=== PATIENT | female | born 1945 | race Caucasian/White ===

== ENCOUNTER 2023-07-06 21:08 | Emergency (ER) | payer OTHER ==
--- OUTSIDE RECORDS SUMMARY | 2023-07-06 21:11 | XMS REPORT | Continuity of Care Document ---
Author Name Unknown Address [address] [facility] [address] [place] [address] [facility] thconnect Address [address] [facility] [address] [place] [address] Care Team Providers Care Jewelry Maker Name Role Phone MYRANDA DEWITT Attending Clinician Unava ilable Payers Payer Name Policy Type Policy Number Effective Date Expirati on Date Source MEDICARE-PART B 5 [id number] 2020 00:00:00 [facility] INS/IND 4 [id number] 2020 00:00:00 Encounters Start Date/Time End Date/Time Encounter Type Admission Type Attending Clinicians Care Facility Care Department Encounter ID Source 2020-11-10 08:30:00 2020-11-10 08:30:00 Outpatient MYRANDA DEWITT [id number] Ashlee Benítez 2020-10-20 09:45:00 2020-10-20 09:45:00 Outpatient MYRANDA DEWITT [id number] Ashlee Benítez
[2023-07-06] MEDS ORDERED: TENECTEPLASE 50 MG/10 ML VIAL IV ONE (21:15)
[2023-07-06 21:43] LABS: Absolute Basophils 0.1 K/uL (0-0.5); Absolute Lymphocytes (CBC) 1.1 K/uL (0.7-4.9); Absolute Monocytes 0.5 K/uL (0.1-1.3); Absolute Neutrophil 11.8 K/uL (1.8-8.0); Basophils % 0.8 % (0-1.3); Eosinophils % 0.4 % (0-4.4); Hematocrit 39.8 % (36.0-45.0); Hemoglobin 13.4 g/dL (12.0-15.0); Lymphocytes % 7.8 % (15.3-44.8); MCH 28.6 pg (27.0-35.0); MCHC 33.8 g/dL (32.0-36.0); MCV 84.8 fL (80-100); MPV 8.2 fL (7.6-11.3); Monocytes % 3.7 % (3.3-12.3); Neutrophils % 87.3 % (41.7-73.7); Platelets 259 thou/uL (152-406); RBC Red Blood Cell Count 4.69 M/uL (3.86-4.86)
--- NOTE | 2023-07-06 21:47 | RAD REPORT ---
EXAM DESCRIPTION: CT - Ct Stroke Brain Wo Cont - 07/06/2023 9:19 pm CLINICAL HISTORY: STROKE ALERT Headache, drowsiness, CVA symptomology COMPARISON: <Comparisons> TECHNIQUE: All CT scans are performed using dose optimization technique as appropriate and may inclu de automated exposure control or mA/KV adjustment according to patient size. FINDINGS: No intracranial hemorrhage, hydrocephalus or extra-axial fluid collection.Moderate brain a trophy.No areas of brain edema or evidence of midline shift. The paranasal sinuses and mastoids are clear. The calvarium is intact. IMPRESSION: No acute intracranial abnormality. The findings were discussed with Denise in the ER on 07/06/2023 at 9:12 p.m. by telephone.
[2023-07-06 21:57] LABS: PT Prothrombin Time 11.3 SECONDS (9.5-12.5); PTT, Activated Partial Thromb 26.1 SECONDS (24.3-36.9); Protime INR 1.03
[2023-07-06 22:01] LABS: Albumin 3.6 g/dL (3.4-5.0); Albumin/Globulin Ratio 1.1 (1.1-1.8); Anion Gap 9.6 mEq/L (5.0-15.0); Bilirubin Direct 0.1 mg/dL (0-0.2); Bilirubin Indirect, Calculated 0.3 mg/dL (0.2-0.8); Bilirubin Total 0.4 mg/dL (0.2-1.0); Globulin 3.2 g/dL (2.3-3.5); Magnesium 1.9 mg/dL (1.6-2.4); Potassium 3.6 mEq/L (3.5-5.1); Protein, Total 6.8 g/dL (6.4-8.2); Troponin High Sensitivity 39.3 pg/mL (<58.9)
--- NOTE | 2023-07-06 22:03 | RAD REPORT ---
EXAM DESCRIPTION: RAD - Chest Single View - 07/06/2023 9:56 pm CLINICAL HISTORY: cva Chest pain. COMPARISON: <Comparisons> FINDINGS: Portable technique limits examination quality. The lungs are grossly clear. The heart is mildly enlarged in size. No displaced fractures. IMPRESSION: No acute intrathoracic process suspected.
[2023-07-06] MEDS ORDERED: PANTOPRAZOLE 40 MG INJ ONE (22:14)
--- NOTE | 2023-07-06 22:25 | RAD REPORT ---
EXAM DESCRIPTION: CT - Head angio - 07/06/2023 10:15 pm CLINICAL HISTORY: cva Headache, drowsiness, CVA symptomology COMPARISON: <Comparisons> TECHNIQUE: CT angiography of the head was performed with MIPs. All CT scans are performed using dose optimization technique as appropriate and may include automated exposure control or mA/KV adjustment according to patient size. FINDINGS: There is abrupt caliber change noted at the left M1 segment compatible with occlusion. No evidence of aneurysm is detected. No flow-limiting stenosis or vascular malformation identified. Antegrade flow is seen in the vertebral arteries. The visualized dural venous sinuses are patent. IMPRESSION: Left M1 segment occlusion is noted.
--- NOTE | 2023-07-06 22:27 | RAD REPORT ---
EXAM DESCRIPTION: CT - Neck Angio - 07/06/2023 10:15 pm CLINICAL HISTORY: cva Headache, drowsiness, CVA symptomology COMPARISON: Ct Stroke Brain Wo Cont dated 07/06/2023 TECHNIQUE: CT angiography of the neck vessels was performed with MIPs. All CT scans are performed using dose optimization technique as appropriate and may include automated exposure control or mA/KV adjustment according to patient size. FINDINGS: A left aortic arch is identified with normal three vessel configuration of the great vesse ls. No significant flow abnormality is seen of the common carotid bilaterally. Mild plaque with mild narrowing seen right carotid bulb. Based on NASCET criteria, stenosis is less t dowd 50%. No significant left-sided stenosis seen. Normal flow is seen within both vertebral arteries. IMPRESSION: No significant flow abnormality of the neck vessels is identified. Mild plaque is present right carotid bulb. NASCET criteria used. Mild 0-49% stenosis Moderate 50-69% stenosis Severe 70-99% stenosis
--- NOTE | 2023-07-06 22:39 | EDPHYS ---
Physician Documentation [facility] Name: Kim Tineo Age: 78 yrs Sex: Female : 1945 Arrival Date: 07/06/2023 Time: 21:08 Bed 6 Private MD: ED Physician Liam Mcmullen HPI: 07/05 22:40 This 78 yrs old Female presents to ER via EMS with complaints of weakness. rt 22:40 Patient presents to the ED with signs and symptoms concerning for acute CVA. Patient rt states that she was last known normal at about 7 PM. Family found patient down on the ground, denies head trauma. Reports speech difficulty, right-sided facial droop, inability to move right arm, right leg. Denies anticoagulant use. Denies recent bleeding, CVA, surgery, or any prior history of head bleeds. Symptoms are severe in severity, no other aggravating alleviating factors.. Historical: - Allergies: 21:21 No Known Allergies; rv - PMHx: 21:21 Hypertensive disorder; rv - Immunization history:: Adult Immunizations up to date. - Social history:: Smoking status: unknown. ROS: 23:18 Constitutional: Negative for fever, chills, and weight loss, Cardiovascular: Negative rt for chest pain, palpitations, and edema, Respiratory: Negative for shortness of breath, cough, wheezing, and pleuritic chest pain, Abdomen/GI: Negative for abdominal pain, nausea, vomiting, diarrhea, and constipation, MS/Extremity: Negative for injury and deformity, Skin: Negative for injury, rash, and discoloration, Psych: Negative for depression, anxiety, suicide ideation, homicidal ideation, and hallucinations, 23:18 Neuro: Positive for speech changes, weakness, Exam: 22:40 ECG was reviewed by the Attending Physician. rt 23:18 Constitutional: This is a well developed, well nourished patient who is awake, alert, rt and in no acute distress. Head/Face: Normocephalic, atraumatic. Chest/axilla: Normal chest wall appearance and motion. Nontender with no deformity. No lesions are appreciated. Cardiovascular: Regular rate and rhythm with a normal S1 and S2. No gallops, murmurs, or rubs. Normal PMI, no JVD. No pulse deficits. Respiratory: Lungs have equal breath sounds bilaterally, clear to auscultation and percussion. No rales, rhonchi or wheezes noted. No increased work of breathing, no retractions or nasal flaring. Abdomen/GI: Soft, non-tender, with normal bowel sounds. No distension or tympany. No guarding or rebound. No evidence of tenderness throughout. Skin: Warm, dry with normal turgor. Normal color with no rashes, no lesions, and no evidence of cellulitis. MS/ Extremity: Pulses equal, no cyanosis. Neurovascular intact. Full, normal range of motion. 23:18 Eyes: Extraocular muscles intact, no visual field deficit. 23:18 Neuro: Dysarthria noted, right-sided facial droop, sensory deficits on the right side. Hemiparesis noted on the right arm and right leg, strength otherwise intact., Vital Signs: 21:19 Weight 105 kg; rv 21:36 BP 164 / 65; Pulse 60; Resp 16; Temp 98; Pulse Ox 96% on R/A; rv 22:00 BP 170 / 62; Pulse 64; Resp 19; Pulse Ox 96% on R/A; rv 22:30 BP 178 / 68; Pulse 65; Resp 15; Pulse Ox 96% on R/A; rv 23:00 BP 172 / 53; Pulse 61; Resp 16; Pulse Ox 97% on R/A; rv 23:30 BP 172 / 61; Pulse 58; Resp 16; Temp 98; Pulse Ox 97% on R/A; rv NIH Stroke Scale Scores: 21:23 NIHSS Score: 13 rt 21:29 NIHSS Score: 13 rv 21:45 NIHSS Score: 13 rv 22:00 NIHSS Score: 13 rv 22:15 NIHSS Score: 13 rv 22:30 NIHSS Score: 13 rv 22:45 NIHSS Score: 13 rv 23:00 NIHSS Score: 13 rv 23:30 NIHSS Score: 13 rv [place] Coma Score: 22:30 Eye Response: spontaneous(4). Motor Response: obeys commands(6). Verbal Response: rv oriented(5). Total: 15. 23:30 Eye Response: spontaneous(4). Motor Response: obeys commands(6). Verbal Response: rv oriented(5). Total: 15. MDM: 21:15 Patient medically screened. rt 23:18 Data reviewed: vital signs, nurses notes, lab test result(s), EKG, radiologic studies. rt Consideration of Admission/Observation Escalation of care including admission/observation considered. Patient course transfer for higher level of care. Independent interpretation of the following test(s) in the Emergency Department CT Scan: My interpretation is No intracranial hemorrhage interpretation of the CT scan images. Discussion of test interpretation with radiology: I had a discussion with radiology regarding a test interpretation. No intracranial hemorrhage. Historians other than the Patient: Daughter/Son: . Care significantly affected by the following chronic conditions: Hypertension. Counseling: I had a detailed discussion with the patient and/or guardian regarding the historical points, exam findings, and any diagnostic results supporting the discharge/admit diagnosis, lab results, radiology results, the need to transfer to another facility. Response to treatment: There is no appreciated change of the patient's symptoms at this time. ED course: Patient with 2 episodes of hematemesis after TNKase administration, vital signs are stable, type and screen sent, Protonix given, will continue to monitor.. 07/05 21:16 Order name: Basic Metabolic Panel; Complete Time: 22:03 rt 07/05 21:16 Order name: CBC with Diff; Complete Time: 22:03 rt 07/05 21:16 Order name: Hepatic Function; Complete Time: 22:03 rt 07/05 21:16 Order name: High Sensitivity Troponin; Complete Time: 22:03 rt 07/05 21:16 Order name: Magnesium; Complete Time: 22:03 rt 07/05 21:16 Order name: Protime (+inr); Complete Time: 22:03 rt 07/05 21:16 Order name: Ptt, Activated; Complete Time: 22: rt 07/05 22:03 Order name: Type And Screen; Complete Time: 23:28 rt 07/05 23:23 Order name: ABO/RH no charge; Complete Time: 23:28 EDMS 07/05 21:16 Order name: CT Head Angio; Complete Time: 22:30 rt 07/05 21:16 Order name: CT Neck Angio; Complete Time: :30 rt 07/05 21:16 Order name: CT Stroke Brain w/o Contrast; Complete Time: 22:03 rt 07/05 21:16 Order name: Stroke CXR 1 View; Complete Time: : rt 07/05 21:16 Order name: Accucheck; Complete Time: 21:36 rt 07/05 21:16 Order name: Cardiac monitoring; Complete Time: 21:36 rt 07/05 21:16 Order name: EKG - Nurse/Tech; Complete Time: :58 rt 07/05 21:16 Order name: IV Saline Lock; Complete Time: 21:36 rt 07/05 21:16 Order name: Labs collected and sent; Complete Time: 21:36 rt 07/05 21:16 Order name: NPO; Complete Time: :36 rt 07/05 21:16 Order name: O2 Per Protocol; Complete Time: 21:36 rt 07/05 21:16 Order name: O2 Sat Monitoring; Complete Time: 21:36 rt EC:40 Rate is 58 beats/min. Rhythm is regular, Sinus bradycardia with No ectopy. Left axis rt deviation noted. MS interval is normal. QRS interval is normal. QT interval is normal. No Q waves. No ST changes noted. Interpreted by me. Administered Medications: 21:30 Drug: TNK FOR STROKE - Tenecteplase IV 0.25 mg/kg IV at per protocol once; MAX pf1 DOSE 25 mg, IVP over 5 seconds {Co-Signature: rv (Dion Rankin RN).} Route: IV; Rate: per protocol; Site: left forearm; 22:54 Follow up: Response: Adverse reaction, Physician notified; IV Status: Completed infusionrv 21:58 Drug: Ondansetron IVP 4 mg IVP once; over 2 minutes Route: IVP; Site: left forearm; rv 22:54 Follow up: Response: No adverse reaction; Marked relief of symptoms rv 22:37 Drug: Pantoprazole IVP 80 mg IVP once Route: IVP; Site: left forearm; rv 22:54 Follow up: Response: No adverse reaction rv 23:00 Drug: Ondansetron IVP 4 mg IVP once; over 2 minutes Route: IVP; Site: left forearm; cm10 07/06 00:06 Follow up: Response: No adverse reaction; Marked relief of symptoms rv Disposition Summary: 07/06/23 22:38 Transfer Ordered Notes: Transfer Location: [facility] rt Reason: Higher level of care rt Condition: Critical rt Problem: new rt Symptoms: are unchanged rt Accepting Physician: (07/07/23 00:09) rv Diagnosis - Acute CVA rt - Left M1 occlusion rt - Hematemesis rt Forms: - Medication Reconciliation Form rt - SBAR form rt Critical care time excluding procedures: 07/05 23:20 Critical care time: Bedside Care: 30 minutes, Consultation: 10 minutes. Total time: 40 rt minutes NIH Stroke Scale - NIH Stroke Score Date: 07/06/2023 Time: 21: Total Score = 13 10. Dysarthria (speech clarity - read or repeat words) - 2(Severe) 11. Extinction and Inattention (visual/tactile/auditory/spatial/personal) - 0(No abnormality) 1a. Level of Consciousness (LOC) - 0(Alert) 1b. Level of Consciousness (LOC) (Month \T\ Age) - 0(Both) 1c. LOC Commands (Open \T\ Closes Eyes/Trim Attacher) - 0(Both) 2. Best Gaze (Lateral Gaze Paresis) - 0(Normal) 3. Visual Field Loss - 0(No visual loss) 4. Facial Palsy - 2(Partial paralysis) 5a. Left Arm: Motor (10-second hold) - 0(No drift) 5b. Right Arm: Motor (10-second hold) - 4(No movement) 6a. Left Leg: Motor (5-second hold - always test supine) - 0(No drift) 6b. Right Leg: Motor (5-second hold - always test supine) - 4(No movement) 7. Limb Ataxia (finger/nose \T\ heel/abarca - test with eyes open) - 0(Absent) 8. Sensory Loss (pinprick arms/legs/face) - 1(Mild to moderate loss) 9. Best Language: Aphasia (description/naming/reading) - 0(No aphasia) Initials: rt NIH Stroke Scale - NIH Stroke Score Date: 07/06/2023 Time: Total Score = 13 10. Dysarthria (speech clarity - read or repeat words) - 1(Mild to Moderate) 11. Extinction and Inattention (visual/tactile/auditory/spatial/personal) - 0(No abnormality) 1a. Level of Consciousness (LOC) - 0(Alert) 1b. Level of Consciousness (LOC) (Month \T\ Age) - 0(Both) 1c. LOC Commands (Open \T\ Closes Eyes/Trim Attacher) - 0(Both) 2. Best Gaze (Lateral Gaze Paresis) - 0(Normal) 3. Visual Field Loss - 0(No visual loss) 4. Facial Palsy - 3(Complete paralysis) 5a. Left Arm: Motor (10-second hold) - 0(No drift) 5b. Right Arm: Motor (10-second hold) - 4(No movement) 6a. Left Leg: Motor (5-second hold - always test supine) - 0(No drift) 6b. Right Leg: Motor (5-second hold - always test supine) - 4(No movement) 7. Limb Ataxia (finger/nose \T\ heel/abarca - test with eyes open) - 0(Absent) 8. Sensory Loss (pinprick arms/legs/face) - 1(Mild to moderate loss) 9. Best Language: Aphasia (description/naming/reading) - 0(No aphasia) Initials: NIH Stroke Scale - NIH Stroke Score Date: 07/06/2023 Time: 21:45 Total Score = 13 10. Dysarthria (speech clarity - read or repeat words) - 1(Mild to Moderate) 11. Extinction and Inattention (visual/tactile/auditory/spatial/personal) - 0(No abnormality) 1a. Level of Consciousness (LOC) - 0(Alert) 1b. Level of Consciousness (LOC) (Month \T\ Age) - 0(Both) 1c. LOC Commands (Open \T\ Closes Eyes/Trim Attacher) - 0(Both) 2. Best Gaze (Lateral Gaze Paresis) - 0(Normal) 3. Visual Field Loss - 0(No visual loss) 4. Facial Palsy - 3(Complete paralysis) 5a. Left Arm: Motor (10-second hold) - 0(No drift) 5b. Right Arm: Motor (10-second hold) - 4(No movement) 6a. Left Leg: Motor (5-second hold - always test supine) - 0(No drift) 6b. Right Leg: Motor (5-second hold - always test supine) - 4(No movement) 7. Limb Ataxia (finger/nose \T\ heel/abarca - test with eyes open) - 0(Absent) 8. Sensory Loss (pinprick arms/legs/face) - 1(Mild to moderate loss) 9. Best Language: Aphasia (description/naming/reading) - 0(No aphasia) Initials: NIH Stroke Scale - NIH Stroke Score Date: 07/06/2023 Time: 22:00 Total Score = 13 10. Dysarthria (speech clarity - read or repeat words) - 1(Mild to Moderate) 11. Extinction and Inattention (visual/tactile/auditory/spatial/personal) - 0(No abnormality) 1a. Level of Consciousness (LOC) - 0(Alert) 1b. Level of Consciousness (LOC) (Month \T\ Age) - 0(Both) 1c. LOC Commands (Open \T\ Closes Eyes/Trim Attacher) - 0(Both) 2. Best Gaze (Lateral Gaze Paresis) - 0(Normal) 3. Visual Field Loss - 0(No visual loss) 4. Facial Palsy - 3(Complete paralysis) 5a. Left Arm: Motor (10-second hold) - 0(No drift) 5b. Right Arm: Motor (10-second hold) - 4(No movement) 6a. Left Leg: Motor (5-second hold - always test supine) - 0(No drift) 6b. Right Leg: Motor (5-second hold - always test supine) - 4(No movement) 7. Limb Ataxia (finger/nose \T\ heel/abarca - test with eyes open) - 0(Absent) 8. Sensory Loss (pinprick arms/legs/face) - 1(Mild to moderate loss) 9. Best Language: Aphasia (description/naming/reading) - 0(No aphasia) Initials: NIH Stroke Scale - NIH Stroke Score Date: 07/06/2023 Time: 22:15 Total Score = 13 10. Dysarthria (speech clarity - read or repeat words) - 1(Mild to Moderate) 11. Extinction and Inattention (visual/tactile/auditory/spatial/personal) - 0(No abnormality) 1a. Level of Consciousness (LOC) - 0(Alert) 1b. Level of Consciousness (LOC) (Month \T\ Age) - 0(Both) 1c. LOC Commands (Open \T\ Closes Eyes/Trim Attacher) - 0(Both) 2. Best Gaze (Lateral Gaze Paresis) - 0(Normal) 3. Visual Field Loss - 0(No visual loss) 4. Facial Palsy - 3(Complete paralysis) 5a. Left Arm: Motor (10-second hold) - 0(No drift) 5b. Right Arm: Motor (10-second hold) - 4(No movement) 6a. Left Leg: Motor (5-second hold - always test supine) - 0(No drift) 6b. Right Leg: Motor (5-second hold - always test supine) - 4(No movement) 7. Limb Ataxia (finger/nose \T\ heel/abarca - test with eyes open) - 0(Absent) 8. Sensory Loss (pinprick arms/legs/face) - 1(Mild to moderate loss) 9. Best Language: Aphasia (description/naming/reading) - 0(No aphasia) Initials: rv NIH Stroke Scale - NIH Stroke Score Date: 07/06/2023 Time: 22:30 Total Score = 13 10. Dysarthria (speech clarity - read or repeat words) - 1(Mild to Moderate) 11. Extinction and Inattention (visual/tactile/auditory/spatial/personal) - 0(No abnormality) 1a. Level of Consciousness (LOC) - 0(Alert) 1b. Level of Consciousness (LOC) (Month \T\ Age) - 0(Both) 1c. LOC Commands (Open \T\ Closes Eyes/Trim Attacher) - 0(Both) 2. Best Gaze (Lateral Gaze Paresis) - 0(Normal) 3. Visual Field Loss - 0(No visual loss) 4. Facial Palsy - 3(Complete paralysis) 5a. Left Arm: Motor (10-second hold) - 0(No drift) 5b. Right Arm: Motor (10-second hold) - 4(No movement) 6a. Left Leg: Motor (5-second hold - always test supine) - 0(No drift) 6b. Right Leg: Motor (5-second hold - always test supine) - 4(No movement) 7. Limb Ataxia (finger/nose \T\ heel/abarca - test with eyes open) - 0(Absent) 8. Sensory Loss (pinprick arms/legs/face) - 1(Mild to moderate loss) 9. Best Language: Aphasia (description/naming/reading) - 0(No aphasia) Initials: rv NIH Stroke Scale - NIH Stroke Score Date: 07/06/2023 Time: 22:45 Total Score = 13 10. Dysarthria (speech clarity - read or repeat words) - 1(Mild to Moderate) 11. Extinction and Inattention (visual/tactile/auditory/spatial/personal) - 0(No abnormality) 1a. Level of Consciousness (LOC) - 0(Alert) 1b. Level of Consciousness (LOC) (Month \T\ Age) - 0(Both) 1c. LOC Commands (Open \T\ Closes Eyes/Trim Attacher) - 0(Both) 2. Best Gaze (Lateral Gaze Paresis) - 0(Normal) 3. Visual Field Loss - 0(No visual loss) 4. Facial Palsy - 3(Complete paralysis) 5a. Left Arm: Motor (10-second hold) - 0(No drift) 5b. Right Arm: Motor (10-second hold) - 4(No movement) 6a. Left Leg: Motor (5-second hold - always test supine) - 0(No drift) 6b. Right Leg: Motor (5-second hold - always test supine) - 4(No movement) 7. Limb Ataxia (finger/nose \T\ heel/abarca - test with eyes open) - 0(Absent) 8. Sensory Loss (pinprick arms/legs/face) - 1(Mild to moderate loss) 9. Best Language: Aphasia (description/naming/reading) - 0(No aphasia) Initials: rv NIH Stroke Scale - NIH Stroke Score Date: 07/06/2023 Time: 23:00 Total Score = 13 10. Dysarthria (speech clarity - read or repeat words) - 1(Mild to Moderate) 11. Extinction and Inattention (visual/tactile/auditory/spatial/personal) - 0(No abnormality) 1a. Level of Consciousness (LOC) - 0(Alert) 1b. Level of Consciousness (LOC) (Month \T\ Age) - 0(Both) 1c. LOC Commands (Open \T\ Closes Eyes/Trim Attacher) - 0(Both) 2. Best Gaze (Lateral Gaze Paresis) - 0(Normal) 3. Visual Field Loss - 0(No visual loss) 4. Facial Palsy - 3(Complete paralysis) 5a. Left Arm: Motor (10-second hold) - 0(No drift) 5b. Right Arm: Motor (10-second hold) - 4(No movement) 6a. Left Leg: Motor (5-second hold - always test supine) - 0(No drift) 6b. Right Leg: Motor (5-second hold - always test supine) - 4(No movement) 7. Limb Ataxia (finger/nose \T\ heel/abarca - test with eyes open) - 0(Absent) 8. Sensory Loss (pinprick arms/legs/face) - 1(Mild to moderate loss) 9. Best Language: Aphasia (description/naming/reading) - 0(No aphasia) Initials: rv NIH Stroke Scale - NIH Stroke Score Date: 07/06/2023 Time: 23:30 Total Score = 13 10. Dysarthria (speech clarity - read or repeat words) - 1(Mild to Moderate) 11. Extinction and Inattention (visual/tactile/auditory/spatial/personal) - 0(No abnormality) 1a. Level of Consciousness (LOC) - 0(Alert) 1b. Level of Consciousness (LOC) (Month \T\ Age) - 0(Both) 1c. LOC Commands (Open \T\ Closes Eyes/Trim Attacher) - 0(Both) 2. Best Gaze (Lateral Gaze Paresis) - 0(Normal) 3. Visual Field Loss - 0(No visual loss) 4. Facial Palsy - 3(Complete paralysis) 5a. Left Arm: Motor (10-second hold) - 0(No drift) 5b. Right Arm: Motor (10-second hold) - 4(No movement) 6a. Left Leg: Motor (5-second hold - always test supine) - 0(No drift) 6b. Right Leg: Motor (5-second hold - always test supine) - 4(No movement) 7. Limb Ataxia (finger/nose \T\ heel/abarca - test with eyes open) - 0(Absent) 8. Sensory Loss (pinprick arms/legs/face) - 1(Mild to moderate loss) 9. Best Language: Aphasia (description/naming/reading) - 0(No aphasia) Initials: rv Signatures: Dispatcher [employer] EDMS Dion Rankin, RN RN rv Liam Mcmullen MD MD rt Angie Ordaz RN RN pf1 Adri Robert RN RN cm10 Dion Rankin RN rv Corrections: (The following items were deleted from the chart) 21:16 21:16 BASIC METABOLIC PANEL+C.LAB.BRZ ordered. EDMS EDMS 21:16 21:16 CBC+H.LAB.BRZ ordered. EDMS EDMS 21:16 21:16 HEPATIC FUNCTION+C.LAB.BRZ ordered. EDMS EDMS 21:16 21:16 Troponin High Sensitivity+C.LAB.BRZ ordered. EDMS EDMS 21:16 21:16 MAGNESIUM+C.LAB.BRZ ordered. EDMS EDMS : 21:16 PROTIME (+INR)+COAG.LAB.BRZ ordered. EDMS EDMS : 21:16 PTT, ACTIVATED+COAG.LAB.BRZ ordered. EDMS EDMS : 21:16 Neck Angio+CT.RAD.BRZ ordered. EDMS EDMS : 21:17 CT-STROKE BRAIN W/O CONTRAST+CT.RAD.BRZ ordered. EDMS EDMS : 21:17 Chest Single View+RAD.RAD.BRZ ordered. EDMS EDMS 07/06 00:09 07/05 22:38 rt rv
--- NOTE | 2023-07-06 22:39 | ER ---
Nurse's Notes [facility] Name: Kim Tineo Age: 78 yrs Sex: Female : 1945 Arrival Date: 07/06/2023 Time: 21:08 Bed 6 Private MD: Diagnosis: Acute CVA;Left M1 occlusion;Hematemesis Presentation: 07/05 21:20 Chief complaint: EMS states: FAMILY FOUND PT ON HER RIGHT SIDE, ON THE GROUND, WEAKNESS rv ON THE RIGHT SIDE, FACIAL DROOP, APHASIA. HYPERTENSIVE, BGL 137. Coronavirus screen: At this time, the client does not indicate any symptoms associated with coronavirus-19. Ebola Screen: No symptoms or risks identified at this time. Initial Sepsis Screen: Does the patient meet any 2 criteria? No. Patient's initial sepsis screen is negative. Does the patient have a suspected source of infection? No. Patient's initial sepsis screen is negative. Risk Assessment: Do you want to hurt yourself or someone else? Patient reports no desire to harm self or others. Onset of symptoms was July 06, 2023. 21:20 Method Of Arrival: EMS: [facility] rv 21:20 Acuity: MISA 1 rv Triage Assessment: 21:36 General: Appears ill, Behavior is calm, cooperative. Pain: Denies pain. Neuro: Level of rv Consciousness is awake, alert, obeys commands, Oriented to person, place, time, situation. Neuro: Reports weakness in face, right arm and right leg. Cardiovascular: Capillary refill < 3 seconds Patient's skin is warm and dry. Respiratory: Airway is patent Respiratory effort is even, unlabored. GI: No signs and/or symptoms were reported involving the gastrointestinal system. : No signs and/or symptoms were reported regarding the genitourinary system. Derm: Skin is intact. Historical: - Allergies: 21:21 No Known Allergies; rv - PMHx: 21:21 Hypertensive disorder; rv - Immunization history:: Adult Immunizations up to date. - Social history:: Smoking status: unknown. Screenin:37 [facility] ED Fall Risk Assessment (Adult) History of falling in the last 3 months, rv including since admission Yes- fall prone (multiple falls) (3 pts) Score/Fall Risk Level 3 or more points = High Risk Oriented to surroundings, Maintained a safe environment, Educated pt \T\ family on fall prevention, incl call for assistance when getting out of bed, Assessed \T\ reinforced patient's understanding of fall precautions. Abuse screen: Denies threats or abuse. Denies injuries from another. Nutritional screening: No deficits noted. Tuberculosis screening: No symptoms or risk factors identified. Assessment: 22:59 Reassessment: Pt noted to be vomiting at this time. Bright red blood noted in bag along cm10 with brown contents, approximately 8 oz.. Provider made aware and verbal order for Zofran obtained. Pt medicated per JUN. Vital Signs: 21:19 Weight 105 kg; rv 21:36 BP 164 / 65; Pulse 60; Resp 16; Temp 98; Pulse Ox 96% on R/A; rv 22:00 BP 170 / 62; Pulse 64; Resp 19; Pulse Ox 96% on R/A; rv 22:30 BP 178 / 68; Pulse 65; Resp 15; Pulse Ox 96% on R/A; rv 23:00 BP 172 / 53; Pulse 61; Resp 16; Pulse Ox 97% on R/A; rv 23:30 BP 172 / 61; Pulse 58; Resp 16; Temp 98; Pulse Ox 97% on R/A; rv Joseluis Coma Score: 22:30 Eye Response: spontaneous(4). Motor Response: obeys commands(6). Verbal Response: rv oriented(5). Total: 15. 23:30 Eye Response: spontaneous(4). Motor Response: obeys commands(6). Verbal Response: rv oriented(5). Total: 15. NIH Stroke Scale Scores: 21:23 NIHSS Score: 13 rt 21:29 NIHSS Score: 13 rv 21:45 NIHSS Score: 13 rv 22:00 NIHSS Score: 13 rv 22:15 NIHSS Score: 13 rv 22:30 NIHSS Score: 13 rv 22:45 NIHSS Score: 13 rv 23:00 NIHSS Score: 13 rv 23:30 NIHSS Score: 13 rv ED Course: 21:15 Patient arrived in ED. rv 21:15 Liam Mcmullen MD is Attending Physician. rt 21:20 CT Stroke Brain w/o Contrast In Process Unspecified. EDMS 21:21 Triage completed. rv 21:36 Arm band placed on right wrist. rv 21:37 Patient has correct armband on for positive identification. Client placed on continuous rv cardiac and pulse oximetry monitoring. NIBP monitoring applied. desk monitor on. 21:37 Maintain EMS IV. Dressing intact. Good blood return noted. Site clean \T\ dry. Gauge \T\ rv site: 20 LFA. 21:58 Stroke CXR 1 View In Process Unspecified. EDMS 22:02 EKG done, by pest technician. reviewed by Liam Mcmullen MD. oe 22:17 CT Head Angio In Process Unspecified. EDMS 22:17 CT Neck Angio In Process Unspecified. EDMS 22:37 [facility] transfer center called, spoke with [place], Transfer initiated. ty 22:[address] [facility] called ETA [id number]. ty 22:54 No provider procedures requiring assistance completed. rv 22:56 Acceptance Given. ty 07/06 00:06 Patient transferred, IV remains in place. rv Administered Medications: 07/05 21:30 Drug: TNK FOR STROKE - Tenecteplase IV 0.25 mg/kg IV at per protocol once; MAX pf1 DOSE 25 mg, IVP over 5 seconds {Co-Signature: rv (Dion Rankin RN).} Route: IV; Rate: per protocol; Site: left forearm; 22:54 Follow up: Response: Adverse reaction, Physician notified; IV Status: Completed infusionrv 21:58 Drug: Ondansetron IVP 4 mg IVP once; over 2 minutes Route: IVP; Site: left forearm; rv 22:54 Follow up: Response: No adverse reaction; Marked relief of symptoms rv 22:37 Drug: Pantoprazole IVP 80 mg IVP once Route: IVP; Site: left forearm; rv 22:54 Follow up: Response: No adverse reaction rv 23:00 Drug: Ondansetron IVP 4 mg IVP once; over 2 minutes Route: IVP; Site: left forearm; cm10 03 00:06 Follow up: Response: No adverse reaction; Marked relief of symptoms rv Medication: 07/05 21:37 VIS not applicable for this client. rv Outcome: 22:38 ER care complete, transfer ordered by . rt 07/06 00:06 Transferred by helicopter to [facility], [facility], Transfer form completed. rv X-rays sent w/ patient. Condition: good Instructed on the need for transfer, 00:09 Patient left the ED. rv NIH Stroke Scale - NIH Stroke Score Date: 07/06/2023 Time: 21:23 Total Score = 13 10. Dysarthria (speech clarity - read or repeat words) - 2(Severe) 11. Extinction and Inattention (visual/tactile/auditory/spatial/personal) - 0(No abnormality) 1a. Level of Consciousness (LOC) - 0(Alert) 1b. Level of Consciousness (LOC) (Month \T\ Age) - 0(Both) 1c. LOC Commands (Open \T\ Closes Eyes/Policy Analyst) - 0(Both) 2. Best Gaze (Lateral Gaze Paresis) - 0(Normal) 3. Visual Field Loss - 0(No visual loss) 4. Facial Palsy - 2(Partial paralysis) 5a. Left Arm: Motor (10-second hold) - 0(No drift) 5b. Right Arm: Motor (10-second hold) - 4(No movement) 6a. Left Leg: Motor (5-second hold - always test supine) - 0(No drift) 6b. Right Leg: Motor (5-second hold - always test supine) - 4(No movement) 7. Limb Ataxia (finger/nose \T\ heel/abarca - test with eyes open) - 0(Absent) 8. Sensory Loss (pinprick arms/legs/face) - 1(Mild to moderate loss) 9. Best Language: Aphasia (description/naming/reading) - 0(No aphasia) Initials: rt NIH Stroke Scale - NIH Stroke Score Date: 07/06/2023 Time: 21:29 Total Score = 13 10. Dysarthria (speech clarity - read or repeat words) - 1(Mild to Moderate) 11. Extinction and Inattention (visual/tactile/auditory/spatial/personal) - 0(No abnormality) 1a. Level of Consciousness (LOC) - 0(Alert) 1b. Level of Consciousness (LOC) (Month \T\ Age) - 0(Both) 1c. LOC Commands (Open \T\ Closes Eyes/Policy Analyst) - 0(Both) 2. Best Gaze (Lateral Gaze Paresis) - 0(Normal) 3. Visual Field Loss - 0(No visual loss) 4. Facial Palsy - 3(Complete paralysis) 5a. Left Arm: Motor (10-second hold) - 0(No drift) 5b. Right Arm: Motor (10-second hold) - 4(No movement) 6a. Left Leg: Motor (5-second hold - always test supine) - 0(No drift) 6b. Right Leg: Motor (5-second hold - always test supine) - 4(No movement) 7. Limb Ataxia (finger/nose \T\ heel/abarca - test with eyes open) - 0(Absent) 8. Sensory Loss (pinprick arms/legs/face) - 1(Mild to moderate loss) 9. Best Language: Aphasia (description/naming/reading) - 0(No aphasia) Initials: NIH Stroke Scale - NIH Stroke Score Date: 07/06/2023 Time: 21:45 Total Score = 13 10. Dysarthria (speech clarity - read or repeat words) - 1(Mild to Moderate) 11. Extinction and Inattention (visual/tactile/auditory/spatial/personal) - 0(No abnormality) 1a. Level of Consciousness (LOC) - 0(Alert) 1b. Level of Consciousness (LOC) (Month \T\ Age) - 0(Both) 1c. LOC Commands (Open \T\ Closes Eyes/Policy Analyst) - 0(Both) 2. Best Gaze (Lateral Gaze Paresis) - 0(Normal) 3. Visual Field Loss - 0(No visual loss) 4. Facial Palsy - 3(Complete paralysis) 5a. Left Arm: Motor (10-second hold) - 0(No drift) 5b. Right Arm: Motor (10-second hold) - 4(No movement) 6a. Left Leg: Motor (5-second hold - always test supine) - 0(No drift) 6b. Right Leg: Motor (5-second hold - always test supine) - 4(No movement) 7. Limb Ataxia (finger/nose \T\ heel/abarca - test with eyes open) - 0(Absent) 8. Sensory Loss (pinprick arms/legs/face) - 1(Mild to moderate loss) 9. Best Language: Aphasia (description/naming/reading) - 0(No aphasia) Initials: NIH Stroke Scale - NIH Stroke Score Date: 07/06/2023 Time: 22:00 Total Score = 13 10. Dysarthria (speech clarity - read or repeat words) - 1(Mild to Moderate) 11. Extinction and Inattention (visual/tactile/auditory/spatial/personal) - 0(No abnormality) 1a. Level of Consciousness (LOC) - 0(Alert) 1b. Level of Consciousness (LOC) (Month \T\ Age) - 0(Both) 1c. LOC Commands (Open \T\ Closes Eyes/Policy Analyst) - 0(Both) 2. Best Gaze (Lateral Gaze Paresis) - 0(Normal) 3. Visual Field Loss - 0(No visual loss) 4. Facial Palsy - 3(Complete paralysis) 5a. Left Arm: Motor (10-second hold) - 0(No drift) 5b. Right Arm: Motor (10-second hold) - 4(No movement) 6a. Left Leg: Motor (5-second hold - always test supine) - 0(No drift) 6b. Right Leg: Motor (5-second hold - always test supine) - 4(No movement) 7. Limb Ataxia (finger/nose \T\ heel/abarca - test with eyes open) - 0(Absent) 8. Sensory Loss (pinprick arms/legs/face) - 1(Mild to moderate loss) 9. Best Language: Aphasia (description/naming/reading) - 0(No aphasia) Initials: rv NIH Stroke Scale - NIH Stroke Score Date: 07/06/2023 Time: 22:15 Total Score = 13 10. Dysarthria (speech clarity - read or repeat words) - 1(Mild to Moderate) 11. Extinction and Inattention (visual/tactile/auditory/spatial/personal) - 0(No abnormality) 1a. Level of Consciousness (LOC) - 0(Alert) 1b. Level of Consciousness (LOC) (Month \T\ Age) - 0(Both) 1c. LOC Commands (Open \T\ Closes Eyes/Policy Analyst) - 0(Both) 2. Best Gaze (Lateral Gaze Paresis) - 0(Normal) 3. Visual Field Loss - 0(No visual loss) 4. Facial Palsy - 3(Complete paralysis) 5a. Left Arm: Motor (10-second hold) - 0(No drift) 5b. Right Arm: Motor (10-second hold) - 4(No movement) 6a. Left Leg: Motor (5-second hold - always test supine) - 0(No drift) 6b. Right Leg: Motor (5-second hold - always test supine) - 4(No movement) 7. Limb Ataxia (finger/nose \T\ heel/abarca - test with eyes open) - 0(Absent) 8. Sensory Loss (pinprick arms/legs/face) - 1(Mild to moderate loss) 9. Best Language: Aphasia (description/naming/reading) - 0(No aphasia) Initials: NIH Stroke Scale - NIH Stroke Score Date: 07/06/2023 Time: 22:30 Total Score = 13 10. Dysarthria (speech clarity - read or repeat words) - 1(Mild to Moderate) 11. Extinction and Inattention (visual/tactile/auditory/spatial/personal) - 0(No abnormality) 1a. Level of Consciousness (LOC) - 0(Alert) 1b. Level of Consciousness (LOC) (Month \T\ Age) - 0(Both) 1c. LOC Commands (Open \T\ Closes Eyes/Policy Analyst) - 0(Both) 2. Best Gaze (Lateral Gaze Paresis) - 0(Normal) 3. Visual Field Loss - 0(No visual loss) 4. Facial Palsy - 3(Complete paralysis) 5a. Left Arm: Motor (10-second hold) - 0(No drift) 5b. Right Arm: Motor (10-second hold) - 4(No movement) 6a. Left Leg: Motor (5-second hold - always test supine) - 0(No drift) 6b. Right Leg: Motor (5-second hold - always test supine) - 4(No movement) 7. Limb Ataxia (finger/nose \T\ heel/abarca - test with eyes open) - 0(Absent) 8. Sensory Loss (pinprick arms/legs/face) - 1(Mild to moderate loss) 9. Best Language: Aphasia (description/naming/reading) - 0(No aphasia) Initials: NIH Stroke Scale - NIH Stroke Score Date: 07/06/2023 Time: 22:45 Total Score = 13 10. Dysarthria (speech clarity - read or repeat words) - 1(Mild to Moderate) 11. Extinction and Inattention (visual/tactile/auditory/spatial/personal) - 0(No abnormality) 1a. Level of Consciousness (LOC) - 0(Alert) 1b. Level of Consciousness (LOC) (Month \T\ Age) - 0(Both) 1c. LOC Commands (Open \T\ Closes Eyes/Policy Analyst) - 0(Both) 2. Best Gaze (Lateral Gaze Paresis) - 0(Normal) 3. Visual Field Loss - 0(No visual loss) 4. Facial Palsy - 3(Complete paralysis) 5a. Left Arm: Motor (10-second hold) - 0(No drift) 5b. Right Arm: Motor (10-second hold) - 4(No movement) 6a. Left Leg: Motor (5-second hold - always test supine) - 0(No drift) 6b. Right Leg: Motor (5-second hold - always test supine) - 4(No movement) 7. Limb Ataxia (finger/nose \T\ heel/abarca - test with eyes open) - 0(Absent) 8. Sensory Loss (pinprick arms/legs/face) - 1(Mild to moderate loss) 9. Best Language: Aphasia (description/naming/reading) - 0(No aphasia) Initials: NIH Stroke Scale - NIH Stroke Score Date: 07/06/2023 Time: 23:00 Total Score = 13 10. Dysarthria (speech clarity - read or repeat words) - 1(Mild to Moderate) 11. Extinction and Inattention (visual/tactile/auditory/spatial/personal) - 0(No abnormality) 1a. Level of Consciousness (LOC) - 0(Alert) 1b. Level of Consciousness (LOC) (Month \T\ Age) - 0(Both) 1c. LOC Commands (Open \T\ Closes Eyes/Policy Analyst) - 0(Both) 2. Best Gaze (Lateral Gaze Paresis) - 0(Normal) 3. Visual Field Loss - 0(No visual loss) 4. Facial Palsy - 3(Complete paralysis) 5a. Left Arm: Motor (10-second hold) - 0(No drift) 5b. Right Arm: Motor (10-second hold) - 4(No movement) 6a. Left Leg: Motor (5-second hold - always test supine) - 0(No drift) 6b. Right Leg: Motor (5-second hold - always test supine) - 4(No movement) 7. Limb Ataxia (finger/nose \T\ heel/abarca - test with eyes open) - 0(Absent) 8. Sensory Loss (pinprick arms/legs/face) - 1(Mild to moderate loss) 9. Best Language: Aphasia (description/naming/reading) - 0(No aphasia) Initials: NIH Stroke Scale - NIH Stroke Score Date: 07/06/2023 Time: 23:30 Total Score = 13 10. Dysarthria (speech clarity - read or repeat words) - 1(Mild to Moderate) 11. Extinction and Inattention (visual/tactile/auditory/spatial/personal) - 0(No abnormality) 1a. Level of Consciousness (LOC) - 0(Alert) 1b. Level of Consciousness (LOC) (Month \T\ Age) - 0(Both) 1c. LOC Commands (Open \T\ Closes Eyes/Policy Analyst) - 0(Both) 2. Best Gaze (Lateral Gaze Paresis) - 0(Normal) 3. Visual Field Loss - 0(No visual loss) 4. Facial Palsy - 3(Complete paralysis) 5a. Left Arm: Motor (10-second hold) - 0(No drift) 5b. Right Arm: Motor (10-second hold) - 4(No movement) 6a. Left Leg: Motor (5-second hold - always test supine) - 0(No drift) 6b. Right Leg: Motor (5-second hold - always test supine) - 4(No movement) 7. Limb Ataxia (finger/nose \T\ heel/abarca - test with eyes open) - 0(Absent) 8. Sensory Loss (pinprick arms/legs/face) - 1(Mild to moderate loss) 9. Best Language: Aphasia (description/naming/reading) - 0(No aphasia) Initials: rv Signatures: Dispatcher [employer] EDMS Kiet West Ronaldo, RN RN rv Liam Mcmullen MD MD rt Angie Ordaz RN RN pf1 Adri Robert RN RN cm10 Daryl Sotelo Ronaldo RN rv Corrections: (The following items were deleted from the chart) 07/05 21:39 21:30 TNK FOR STROKE - Tenecteplase IV 26.25 mg IV at per protocol in pf1 left forearm pf1
[2023-07-06] MEDS ORDERED: ONDANSETRON 4 MG/2 ML VIAL ONE (22:55)
[2023-07-07 00:40] VITALS: BP 172/61; TEMP 98; O2SAT 97
--- NOTE | 2023-07-07 09:39 | EKG ---
Test Date: 2023-07-06 Test Time: 21:43:53 Digital Engineer: DECLAN MEASUREMENT RESULTS: Intervals: Rate: 58 NH: 198 QRSD: 106 QT: 464 QTc: 455 [place]: P: 48 NH: 198 QRS: -35 T: 11 INTERPRETIVE STATEMENTS: Sinus bradycardia Left axis deviation Moderate voltage criteria for LVH, may be normal variant Abnormal ECG Compared to ECG 07/16/2006 08:19:47 Left-axis deviation now present Electronically Signed On 07-07-23 09:38:06 CDT by Juanito Kendrick
== END 2023-07-07 00:09 | disposition short-term general hospital (02) ==
LOC: ER 21:08
DX: I63.9 Cerebral infarction, unspecified (principal); I66.02 Occlusion and stenosis of left middle cerebral artery; K92.0 Hematemesis; R29.713 NIHSS score 13; I10 Essential (primary) hypertension
CPT/HCPCS: 96365; 92977; 93005; 85025; 80048; 36415; 86900; 83735; 86850; 85610; 86901; 80076; 85730; 84484; 70496; 70498; 70450; 71045; 96375; 99291; Q9967; J3101; C9113; J2405